=== PATIENT | male | born 1960 | race Caucasian/White ===

== ENCOUNTER 2017-03-15 14:18 | Emergency (ER) | payer MEDICAID, MEDICARE ==
[~2017-03-15] VITALS: Ht 180.3 cm; Wt 70.0 kg
[~2017-03-15 14:18] MED LIST: RISP12.5 IM; ZYPR15TA OR
[2017-03-15 14:23] VITALS: BP 124/69; PULSE 76; RESP 20; TEMP 97.9; O2SAT 98
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
[2017-03-15] MEDS ORDERED: IBUP-232 PO (16:30)
== END 2017-03-15 17:15 | disposition home or self-care (01) ==
LOC: NEDAMB 14:18
DX: S52.572A Other intraarticular fracture of lower end of left radius, initial encounter for closed fracture (principal); I10 Essential (primary) hypertension; V13.4XXA Pedal cycle driver injured in collision with car, pick-up truck or van in traffic accident, initial encounter; Y93.55 Activity, bike riding; Y92.410 Unspecified street and highway as the place of occurrence of the external cause; F17.210 Nicotine dependence, cigarettes, uncomplicated
CPT/HCPCS: 29125; 73110